=== PATIENT | male | born 1990 | race Caucasian/White ===

== ENCOUNTER 2017-05-16 23:50 | Emergency (ER) | payer OTHER ==
[~2017-05-16] VITALS: Ht 170.2 cm; Wt 77.1 kg
[~2017-05-16 23:50] MED LIST: FLEXERIL10 MG PO; NO MEDICATIONS; VOLTAREN50 MG PO
[2017-05-16] MEDS ORDERED: NO MEDICATIONS (23:56)
== END 2017-05-17 00:49 | disposition home or self-care (01) ==
LOC: SED 23:50
DX: T20.20XA Burn of second degree of head, face, and neck, unspecified site, initial encounter (principal); T21.21XA Burn of second degree of chest wall, initial encounter; T22.20XA Burn of second degree of shoulder and upper limb, except wrist and hand, unspecified site, initial encounter; X14.1XXA Other contact with hot air and other hot gases, initial encounter; Y92.009 Unspecified place in unspecified non-institutional (private) residence as the place of occurrence of the external cause; F17.210 Nicotine dependence, cigarettes, uncomplicated
CPT/HCPCS: 16020; 96372; 99283; J1885